=== PATIENT | female | born 1950 | race African-American/Black ===

== ENCOUNTER 2016-09-27 22:57 | Inpatient (IN) ==
[2016-09-28] MEDS ORDERED: ALUM/MAG/SIMETH/LIDO VISC 1:1 30 ML BOTTLE PO STA (00:15)
[2016-09-28] MEDS ORDERED: ONDANSETRON 4 MG/2 ML VIAL IV STA (00:15)
[2016-09-28] MEDS ORDERED: PANTOPRAZOLE 40 MG VIAL IV STA (00:15)
[2016-09-28] MEDS ORDERED: SODIUM CHLORIDE 0.9% 500 ML IV STA (00:15)
[2016-09-28 00:38] LABS: Basophils % 0.3 % (0.0-0.8); Eosinophils # 0.1 10*3/uL (0.0-0.87); Eosinophils % 1.4 % (0.00-10.9); Hematocrit 45.6 VOL% (35.7-47.0); Hemoglobin 15.9 GM/DL (12.0-16.0); Immature Granulocytes % 0.3 %; Immature Granulocytes Absolute 0.01 #; Lymphocytes # 0.5 10*3/uL (1.4-4.0); Lymphocytes % 12.4 % (21.3-54.2); Mean Corpuscular HGB Conc 34.9 GM/DL (32-36); Mean Corpuscular Hemoglobin 30 PG (27-34); Mean Corpuscular Volume 85.4 FL (87-102); Mean Platelet Volume 11.3 FL (9.6-12.0); Monocytes # 0.3 10*3/uL (0.11-0.8); Monocytes % 7.7 % (1.7-12.7); Neutrophils # 2.8 10*3/uL (1.4-7.4); Neutrophils % 77.9 % (38.7-73.9); Platelet Count 179 T/CUMM (130-400); Red Blood Count 5.34 MC/CUMM (3.8-5.5); Red Cell Distribution Width 13.3 % (9.3-17.3); White Blood Count 3.6 T/CUMM (4-12)
[2016-09-28 00:45] LABS: Apearance,Urine CLEAR (Clear); Bilirubin,Urine Negative (Negative); Blood, Urine Negative (Negative); Glucose,Urine (UA) Negative (Negative); Ketones,Urine Negative (Negative); Mucus,Urine Occasional /LPF (Occasional); Nitrite,Urine Negative (Negative); Protein,Urine Negative; RBC,Urine <1 /HPF (0-4); Squamous Epithelial Cell,Urine Occasional /HPF (0-10); Urine Color Yellow (Yellow); Urine Specific Gravity 1.008 (1.001-1.035); WBC,Urine 1 /HPF (0-6)
[2016-09-28] MEDS ORDERED: ONDANSETRON 4 MG/2 ML VIAL ONE ×3 (00:53→12:22)
[2016-09-28] MEDS ORDERED: PANTOPRAZOLE 40 MG VIAL IV ONE (00:53)
[2016-09-28] MEDS ORDERED: ALUM/MAG/SIMETH/LIDO VISC 1:1 30 ML BOTTLE PO ONE (00:54)
--- NOTE | 2016-09-28 00:57 | Emergency Department Note ---
Del Hoyos Emily, am scribing for, and in the presence of, Sonu العلي MD 00: 23. Zohra Hoyos Charles R, MD, personally performed the services described in this documentation, ascribed by Sandra Mathis in my presence, and it is both accurate and complete . Arrival - Arrival Chief Complaint: Abdominal / Flank Pain Stated Complaint: stomach pain cant use bathroom bloated ED Nursing Triage Note: Patient to triage with c/o ABD pain, and ABD bloating. ABD firm and distended in triage. Last BM was last night and was loose. Patient states she has not passed much gas today. Last meal this evening. Patient reports she has been on the road all week traveling. Mode of Arrival: Wheelchair Limitations: No Limitations Source: Patient Time Seen by Provider: 09/27/16 23:56 - History of Present Illness HPI Narrative: Pt is a 66 y/o female who came to ED while traveling this week from [place], [place], with c/o constipation and abdomen bloated and in pain that started 2 days ago. Pt notes passing some flatulence today and small BM yesterday but was loose. Pt reports having Sjogren's syndrome but denies ever having surgery for bowel obstructions in the past. Pt notes she's had abdomen pain and bloating for 2 years now, that comes in waves. Pt denies blood thinners. PMHx of hysterectomy. Onset (ago): day(s) Consistency: constant Severity: moderate Severity scale (1-10): 5 Quality: aching, fullness Date of Last Menstrual Period: hyst Allergies/Adverse Reactions: Allergies Allergy/AdvReac Type Severity Reaction Status Date / Time codeine Allergy ANAPHYLAXIS Verified 09/27/16 23:28 sertraline [From Zoloft] Allergy ANAPHYLAXIS Verified 09/27/16 23:28 simvastatin [From Zocor] Allergy ANAPHYLAXIS Verified 09/27/16 23:28 Nmlwxud-Wdd-Iue Reductase Allergy ANAPHYLAXIS Verified 09/27/16 23:28 Inhibitor celecoxib [From Celebrex] AdvReac Gastrointestinal Verified 09/27/16 23:28 Upset Review of System - Review of System 12 point system: reviewed and no additional remarkable complaints except as stated - Review of System Constitutional: Absent: fever Respiratory: Absent: respiratory distress Cardiovascular: Absent: chest pain Gastrointestinal: Present: abdominal pain, constipation. Absent: nausea, vomiting, diarrhea, melena Genitourinary female: Absent: dysuria, hematuria Musculoskeletal: Absent: arm pain, back pain Skin: Absent: rash Neurological: Absent: headache, numbness, confusion, abnormal gait Psychiatric: Absent: anxiety Medical,Surgical,& Family Hx - Medical History Cardio: History of: Hypertension Rheumatology: History of;: Rheumatoid Arthritis, Systemic Lupus Erythematosus Respiratory: History of: Bronchitis Musculoskeletal: History of: Musculoskeletal Problems (ganglion cyst to right wrist removed) Other: History of: Miscellaneous Medical Problems (auto immune disorder) - Surgical History HEENT Surgeries: Surgical HX of: Tonsilectomy & Adenoidectomy - Family History Family History: noncontributory - Social History Smoking Status: Never smoker Frequency of Alcohol Use: None Type of Drug Use: None Marital Status: Single Functional capacity: independent ambulation Exam Vital Signs: Vital Signs Temperature 98.7 F 09/27/16 23:17 Pulse Rate 101 H 09/27/16 23:17 Respiratory Rate 20 09/27/16 23:17 Blood Pressure 164/81 09/27/16 23:17 O2 Sat by Pulse Oximetry 100 09/27/16 23:17 - General General appearance: alert, in distress (mildly) - Head Head exam: Present: atraumatic, normocephalic - Eye Eye exam: Present: PERRL, EOMI - ENT ENT exam: Present: mucous membranes moist. Absent: mucous membranes dry - Neck Neck exam: Present: full ROM. Absent: tenderness - Chest Chest inspection: Present: symmetric chest wall rise. Absent: tenderness - Respiratory Respiratory exam: Present: normal lung sounds bilaterally. Absent: respiratory distress - Cardiovascular Cardiovascular exam: Present: tachycardia, normal heart sounds - Abdominal Exam Abdominal exam: Present: soft, distention (protuberant), tenderness (diffusely) , diminished bowel sounds (high tinkly bowel sounds). Absent: guarding, rebound - Extremities Exam Extremities exam: Present: full ROM. Absent: tenderness, pedal edema - Neurological Exam Neurological exam: Present: alert, oriented X3, CN II-XII intact. Absent: motor sensory deficit - Psychiatric Psychiatric exam: Present: normal affect, normal mood - Skin Skin exam: Present: warm, dry Course Course Narrative: Patient has possible small bowel obstruction with ischemic enteritis. NG tube in place decompress the bowel Dr. Winters will come see patient emergency room for possible surgery - Consultations Consultation #1: Dr. Winters will see patient in the emergency room evaluation for possible surgery Time: 01:22 Results - Labs CBC & BMP: 09/28/16 00:00 09/28/16 00:00 Lab Results: I have reviewed the patients labs Labs: Laboratory Tests 09/28/16 09/28/16 00:00 00:00 WBC 3.6 L MCV 85.4 L Neut % (Auto) 77.9 H Lymph % (Auto) 12.4 L Lymph # (Auto) 0.5 L Urine Color Yellow Urine Appearance Clear Urine pH 6.0 Ur Specific Freeborn 1.008 Urine Blood Negative Urine Urobilinogen 2.0 H Urine Leukocytes Negative Urine RBC <1 Urine WBC 1 Ur Squamous Epith Cells Occasional Urine Mucus Occasional Laboratory Tests 09/28/16 00:00 Potassium 3.1 L Creatinine 0.50 L Glucose 122 H Calcium 8.2 L Total Bilirubin 1.10 H Albumin 3.1 L Globulin 3.8 H Albumin/Globulin Ratio 0.8 L Critical Care Time Critical Care Time: Yes Total Critical Care Time: 60 Disposition Clinical Impression: Abdominal pain, Small bowel obstruction, Ischemic colitis, enteritis, or enterocolitis Case discussed with: patient, patient's family Disposition: Still a Patient Condition: Guarded Time of Disposition: :23
[2016-09-28 01:10] LABS: Alanine Aminotransferase 36 U/L (13-56); Albumin 3.1 G/DL (3.4-5.0); Alkaline Phosphatase 84 U/L (45-117); Amylase 32 U/L (25-115); Aspartate Amino Transferase 30 U/L (0-37); Blood Urea Nitrogen 7 MG/DL (7-18); Calcium 8.2 MG/DL (8.5-10.1); Glucose 122 MG/DL (74-106); Magnesium 2.2 MG/DL (1.8-2.4); Osmolality,Calculated 273.7 MOS/KG (273-304); Potassium 3.1 MMOL/L (3.5-5.1); Sodium 138 MMOL/L (136-145); Total Protein 6.9 G/DL (6.4-8.3); Troponin I Only < 0.015 NG/ML (0.00-0.045)
[2016-09-28] MEDS ORDERED: PIPERACILLIN/TAZOBACTAM 3,375 MG in SODIUM CHLORIDE 0.9% 100 ML IV STA (01:23)
--- NOTE | 2016-09-28 02:07 | General Surg History&Physical ---
Assessment and Plan (1) Ischemic colitis, enteritis, or enterocolitis Status: Inactive Current Visit: Yes (2) Small bowel obstruction Status: Acute Assessment and plan: This patient presents with a small bowel obstruction. Her CT scan report is reviewed. I have also reviewed the images on her CT scan. I do not see an area of pneumatosis but as mentioned by the [facility] radiologist. I also do not see that there is definitive evidence of a closed loop obstruction. The patient is uncomfortable but does not have peritonitis and is not any longer tachycardic. Her labs are relatively stable. I do not see any indications right now for emergent surgical intervention. We will place an NG tube and resuscitate the patient and see how she does tonight but if she worsens she will need to be taken to the operating room for laparotomy with lysis of adhesions. Current Visit: Yes History of Present Illness Chief complaint: Abdominal pain with nausea and vomiting History of present illness: Ms. Guerra is a 66 year old female who has a history of crest syndrome presents to the hospital with 1 day history of progressively worsening abdominal pain with distention and watery diarrhea. She denies any blood in her stool. She has had 3 bowel obstructions in the past but not one recently. She lives in [place] this is driving back home from the [facility] vacation driving trip. She has had a hysterectomy and umbilical hernia repair she thinks was without mass in the 80s. She was evaluated in the ER with a CBC, chemistry, urinalysis, abdominal x-ray, EKG, and CT of abdomen and pelvis without contrast. Her white blood cell count is essentially normal at 3600. Her chemistry is normal and her lactic acid is normal. Troponins were normal. EKG is sinus rhythm. Abdominal films reviewed. [facility] radiology reports pneumatosis on a single slice on CT scan and raises the possibility of ischemic enteritis and also talks about the possibility of a closed loop obstruction. I reviewed the images personally and do not see any evidence of pneumatosis or closed loop obstruction. There is dilation of the small bowel with distal decompression. Allergies Allergy/AdvReac Type Severity Reaction Status Date / Time codeine Allergy ANAPHYLAXIS Verified 09/27/16 23:28 sertraline [From Zoloft] Allergy ANAPHYLAXIS Verified 09/27/16 23:28 simvastatin [From Zocor] Allergy ANAPHYLAXIS Verified 09/27/16 23:28 Wqavdrb-Wwz-Adr Reductase Allergy ANAPHYLAXIS Verified 09/27/16 23:28 Inhibitor celecoxib [From Celebrex] AdvReac Gastrointestinal Verified 09/27/16 23:28 Upset Medical,Surgical,& Family Hx - Medical History Cardio: History of: Hypertension Rheumatology: History of;: Rheumatoid Arthritis, Systemic Lupus Erythematosus Respiratory: History of: Bronchitis Musculoskeletal: History of: Musculoskeletal Problems (ganglion cyst to right wrist removed) Other: History of: Miscellaneous Medical Problems (auto immune disorder) - Surgical History HEENT Surgeries: Surgical HX of: Tonsilectomy & Adenoidectomy - Social History Smoking Status: Never smoker Frequency of Alcohol Use: None Type of Drug Use: None Exam - Constitutional Vitals: Period Temp Pulse Resp BP Sys/Malik Pulse Ox Last 24 Hr 98.7 F-98.7 F 101-101 18-20 164-164/81-81 100 General appearance: no acute distress, over weight - Head Head exam: Present: normal inspection, normocephalic - Eye Eye exam: Present: EOMI Pupils: Present: WESLEY - ENT ENT exam: Present: normal exam Mouth exam: Present: normal external inspection, normal voice - Neck Neck exam: Present: normal inspection, trachea midline - Respiratory Respiratory exam: Present: clear to auscultation bilaterally. Absent: accessory muscle use, chest wall tenderness - Cardiovascular Cardiovascular exam: Present: RRR. Absent: systolic murmur, tachycardia - GI/Abdominal GI/Abdominal exam: Present: hyperactive bowel sounds, tenderness (Patient is tender diffusely but no peritoneal signs. No rebound or guarding.), soft. Absent: guarding, rebound - Extremities Exam Extremities exam: Present: normal inspection, normal capillary refill - Back Exam Back exam: Present: normal inspection - Neurological Exam Neurological exam: Present: alert, oriented X3 Speech: Present: normal - Skin Skin exam: Present: normal color, warm - Constitutional Constitutional: Present: as per HPI - EENT Nose, mouth and throat: Present: as per HPI - Cardiovascular Cardiovascular: Present: as per HPI - Respiratory Respiratory: Present: as per HPI - Gastrointestinal Gastrointestinal: Present: as per HPI - Genitourinary Genitourinary: Present: as per HPI - Musculoskeletal Musculoskeletal: Present: as per HPI - Neurological Neurological: Present: as per HPI - Endocrine Endocrine: Present: as per HPI Hematologic/Lymphatic: Present: as per HPI Results - Labs CBC & BMP: 09/28/16 00:00 09/28/16 00:00 - Diagnostic Findings Procedure: CT Abdomen and Pelvis: image reviewed by me, report reviewed by me
[2016-09-28] MEDS ORDERED: PIPERACILLIN/TAZOBACTAM 3,375 MG VIAL IV ONE (02:44)
[2016-09-28] MEDS ORDERED: SODIUM CHLORIDE 0.9% 100 ML IV ONE ×2 (02:48)
--- NOTE | 2016-09-28 03:15 | Event Note ---
I have placed an NG tube in the patient and ensure that it is adequately positioned. The initial x-ray showed that it was too shallow and noted advance until he returned bilious looking fluid. The patient felt significant relief and actually had 2 bowel movements after I first saw her. She was actually pain -free at that point in time and still distended but felt significantly better. We discussed the option of operative intervention with the patient would like to wait for now since she feels so much better. She does have a CT scan is fairly significant but given her clinical exam and immediate improvement in the ER already she would like to hold off on operative intervention. I have offered operative intervention given the results of the CT scan but of also told the patient that I think it is reasonable to monitor her abdominal exam with NG tube and antibiotics and IV fluid resuscitation. If she worsens at all she will need to go to the operating room but I think it is reasonable at this point in time to watch her clinically and decompress her and treat her nonoperatively. 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 Her lactic acid is normal and we will plan to admit her to regular bed and continue her decompression overnight with repeat labs and x-ray in the morning.
[2016-09-28] MEDS ORDERED: ACETAMINOPHEN 325 MG TABLET PO PRN (04:33)
[2016-09-28] MEDS ORDERED: PIPERACILLIN/TAZOBACTAM 3,375 MG in SODIUM CHLORIDE 0.9% 100 ML IV SCH ×2 (04:33→11:00)
[2016-09-28] MEDS ORDERED: ONDANSETRON 4 MG/2 ML VIAL IV PRN ×2 (04:33→12:17)
[2016-09-28] MEDS: LACTATED RINGERS 1,000 ML IV SCH ×3 (05:41→22:47)
--- NOTE | 2016-09-28 06:41 | CT Report ---
CT abdomen pelvis wo con Indication: Abdominal pain/pelvic pain Comparison: None Technique: Multiple axial tomographic images of the abdomen and pelvis were obtained without the use of intravenous contrast. Findings: Mild dependent change of the lungs present. No worrisome focal hepatic abnormality. Gallbladder partially contracted. The pancreas is grossly unremarkable. The spleen is grossly unremarkable. The bilateral adrenal glands are grossly unremarkable. The bilateral kidneys are grossly unremarkable. The urinary bladder is incompletely distended. Status post hysterectomy. Small free fluid within the pelvis. Appendix not identified with certainty. Loops of dilated small bowel are demonstrated throughout the abdomen measuring up to 5.4 cm consistent with small bowel obstruction. Transition point question within the mid mesentery where there is significant mesenteric fat stranding suggestive of enteritis. Question pneumatosis within small bowel of the inferior abdomen/pelvis which can be seen with ischemic bowel. Closed-loop obstruction not excluded. Mild atherosclerotic calcifications demonstrated. Visualized osseous and surrounding soft tissue structures demonstrate no acute abnormality. Significant degenerative change of the bilateral SI joints. Bilateral pars defects at L5 with grade 2 anterolisthesis of L5 upon S1 with severe loss of disc space height at this level. IMPRESSION: Loops of dilated small bowel are demonstrated throughout the abdomen measuring up to 5.4 cm consistent with small bowel obstruction. Transition point question within the mid mesentery where there is significant mesenteric fat stranding suggestive of enteritis. Question pneumatosis within small bowel of the inferior abdomen/pelvis which can be seen with ischemic bowel. Closed-loop obstruction not excluded. There is small free fluid within the pelvis. Status post hysterectomy and other detailed findings as above. Preliminary report was issued by [facility]. Findings discussed with Dr. Sonu العلي at 1:10 AM on September 28, 2016 by Bonita Morocho. The CT exam was performed using one or more of the following dose reduction techniques: Automated exposure control, adjustment of the mA and/or kV according to patient size, or use of iterative reconstruction technique. PROCEDURE INTERPRETED AT [facility] [place] DEPARTMENT OF RADIOLOGY Final Report Signed by: Dr Abel Minaya
--- NOTE | 2016-09-28 06:58 | XRay Report ---
XR abdomen 1V Indication: NG tube placement Comparison: Abdominal x-ray dated August 29, 2016 at 2:26 AM Technique: Frontal views of the abdomen specifically for enteric tube placement. Findings: Nonweighted enteric tube tip projects over the proximal stomach. Side port projects over the distal thoracic esophagus. Consider advancing by at least 8 cm. Findings consistent with small bowel obstruction again demonstrated. IMPRESSION: As above. PROCEDURE INTERPRETED AT [facility] DEPARTMENT OF RADIOLOGY Final Report Signed by: Dr Abel Minaya
--- NOTE | 2016-09-28 07:04 | XRay Report ---
XR abdomen complete w decub Indication: Generalized abdominal pain Comparison: None Technique: Frontal views of the abdomen in the supine and upright position. Findings: Dilated small bowel throughout abdomen with air-fluid levels consistent with small bowel obstruction. No free intraperitoneal air. Diffuse osteopenia. Presumed pelvic phleboliths. Lung bases clear. IMPRESSION: As above. PROCEDURE INTERPRETED AT [facility] DEPARTMENT OF RADIOLOGY Final Report Signed by: Dr Abel Minaya
--- NOTE | 2016-09-28 07:16 | EKG Report ---
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
--- NOTE | 2016-09-28 07:55 | General Surgery Progress Note ---
Assessment and Plan (1) Ischemic colitis, enteritis, or enterocolitis Status: Inactive Current Visit: Yes (2) Small bowel obstruction Status: Acute Assessment and plan: The patient still appears stable and does not appear septic. However, her pain is slightly worsened and given the appearance of her CT scan I think the best thing to do at this point be to take her to the operating room for laparotomy and lysis of adhesions. I discussed the possibility of bowel resection and ostomy with patient. Y initially got called to see the patient last night with a diagnosis of pneumatosis and small bowel obstruction I was planning on operating on her. However, after coming into the ER and seeing how she looked, I felt like treating the patient rather than the CT scan was the appropriate thing to do and the patient was not tachycardic with essentially normal labs her abdominal exam showed no peritoneal signs and she actually had 2 bowel movements while I was there and I observed her for about 2 hours with an NG tube placed personally and she improved significantly symptomatically. For these reasons I decided to initially watch her with close observation and any changes such as was happening this morning would need to trigger an exploration to prevent necrosis of any bowel that may be compromised by the obstruction I discussed all this again with the patient and she is agreeable to surgery. We will go as soon as a room is available.. Current Visit: Yes Subjective Patient reports: Present: no new complaints, still having pain, no flatus, no bowel movement, nausea, afebrile. Absent: bowel movement, vomiting Narrative: Patient really does not feel much better overnight. She looks a little bit more uncomfortable to me today. I stayed with her last night for about 2 hours to monitor her initial response to treatment and she actually became pain-free and had 2 bowel movements and felt much better so we held off on surgery last night. But does not appear to be the case this morning. There does not appear to be any any tachycardia or fevers in the chart. Labs are pending Exam - Constitutional Vitals: Period Temp Pulse Resp BP Sys/Malik Pulse Ox Last 24 Hr 97.4 F-98.7 F 79-101 18-20 139-164/64-81 95-100 General appearance: normal weight, no acute distress - Head Head exam: Present: normal inspection, normocephalic - Eye Eye exam: Present: EOMI - ENT ENT exam: Present: normal exam Mouth exam: Present: normal external inspection, normal voice - Neck Neck exam: Present: normal inspection, trachea midline - Respiratory Respiratory exam: Present: clear to auscultation bilaterally. Absent: accessory muscle use, chest wall tenderness - Cardiovascular Cardiovascular exam: Present: RRR. Absent: systolic murmur, tachycardia - GI/Abdominal GI/Abdominal exam: Present: hypoactive bowel sounds, tenderness (There is minimal diffuse tenderness but it is a little bit worse than yesterday in my opinion. No peritoneal signs.), soft. Absent: distended, rebound - Extremities Exam Extremities exam: Present: normal inspection, normal capillary refill - Back Exam Back exam: Present: normal inspection - Neurological Exam Neurological exam: Present: alert, oriented X3 Speech: Present: normal - Skin Skin exam: Present: normal color, warm Results - Labs CBC & BMP: 09/28/16 00:00 09/28/16 00:00
[2016-09-28] MEDS: PANTOPRAZOLE 40 MG VIAL IV SCH (08:20)
[2016-09-28 08:29] LABS: Eosinophils % 0.8 % (0.00-10.9); Hematocrit 31.9 VOL% (35.7-47.0); Immature Granulocytes % 0.4 %; Immature Granulocytes Absolute 0.02 #; Lymphocytes # 0.9 10*3/uL (1.4-4.0); Lymphocytes % 18.1 % (21.3-54.2); Mean Corpuscular HGB Conc 33.9 GM/DL (32-36); Mean Corpuscular Hemoglobin 30 PG (27-34); Mean Corpuscular Volume 87.2 FL (87-102); Mean Platelet Volume 11.6 FL (9.6-12.0); Monocytes # 0.4 10*3/uL (0.11-0.8); Monocytes % 8.5 % (1.7-12.7); Neutrophils # 3.7 10*3/uL (1.4-7.4); Neutrophils % 72.2 % (38.7-73.9); Red Cell Distribution Width 13.4 % (9.3-17.3)
[2016-09-28 08:30] LABS: Hemoglobin 10.8 GM/DL (12.0-16.0); Platelet Count 258 T/CUMM (130-400); Red Blood Count 3.66 MC/CUMM (3.8-5.5); White Blood Count 5.1 T/CUMM (4-12)
[2016-09-28 08:33] LABS: Calcium 7.8 MG/DL (8.5-10.1); Magnesium 2.2 MG/DL (1.8-2.4); Osmolality,Calculated 278.3 MOS/KG (273-304); Potassium 3.2 MMOL/L (3.5-5.1)
[2016-09-28] MEDS ORDERED: PANTOPRAZOLE 40 MG TABLET PO SCH (09:00)
[2016-09-28] MEDS ORDERED: DIAZEPAM 5 MG TABLET PO ONE (09:09)
[2016-09-28] MEDS ORDERED: ALBUTEROL 2.5 MG/3 ML NEB RESP TX ONE (09:09)
[2016-09-28] MEDS ORDERED: PROPOFOL 200 MG/20 ML VIAL IV ONE (09:50)
[2016-09-28] MEDS ORDERED: NEOSTIGMINE 10 MG/10 ML VIAL ONE (09:50)
[2016-09-28] MEDS ORDERED: LIDOCAINE 1% 5 ML VIAL ONE (09:50)
[2016-09-28] MEDS ORDERED: GLYCOPYRROLATE 0.4 MG/2 ML VIAL ONE (09:50)
[2016-09-28] MEDS ORDERED: ROCURONIUM 100 MG/10 ML VIAL IV ONE (09:50)
[2016-09-28] MEDS ORDERED: PHENYLEPHRINE 1 MG/10 ML SYRINGE IV ONE (09:50)
[2016-09-28] MEDS ORDERED: SUCCINYLCHOLINE 200 MG/10 ML VIAL ONE (09:50)
[2016-09-28] MEDS ORDERED: MIDAZOLAM 2 MG/2 ML VIAL ONE (11:40)
[2016-09-28] MEDS ORDERED: SEVOFLURANE 1 UNIT/15 MINUTE INH ONE (11:40)
[2016-09-28] MEDS ORDERED: fentaNYL 100 MCG/2 ML VIAL ONE (11:41)
[2016-09-28] MEDS ORDERED: LACTATED RINGERS 1,000 ML IV ONE (11:41)
[2016-09-28 11:43] LABS: Apearance,Urine CLEAR (Clear); Bilirubin,Urine Negative (Negative); Blood, Urine Negative (Negative); Glucose,Urine (UA) Negative (Negative); Ketones,Urine 5 mg/dL (Negative); Nitrite,Urine Negative (Negative); Protein,Urine Negative; RBC,Urine <1 /HPF (0-4); Urine Color Straw (Yellow); Urine Specific Gravity 1.002 (1.001-1.035); Urine Urobilinogen < 2.0 EU/DL (0.2-1.0); WBC,Urine <1 /HPF (0-6)
--- NOTE | 2016-09-28 12:00 | Operative Note ---
Date of procedure: 09/28/16 Pre-op diagnosis: Small bowel obstruction Post-op diagnosis: same Procedure: Preoperative diagnosis Small bowel obstruction Postoperative diagnosis Same Procedures performed 1. Exploratory laparotomy with lysis of adhesions 2. Small bowel resection with primary anastomosis Findings There was an adhesive band between the omentum and the sigmoid colon that could cause an internal hernia and a twisting of the mesentery and small bowel in the distal ileum. This area was freed up by fraying of this adhesion and the other adhesions in the abdominal cavity were also taken down. A complete enterolysis was obtained. There was a scarred area where the bowel was twisted that look like it was going to remain obstructed and would not open up and this area was also beat up from the internal hernia and for these reasons I elected to resect this portion of the distal ileum and a primary anastomosis was performed. The bowel was decompressed through the enterotomy created for the anastomosis and resection. The NG tube position was confirmed and we upsized to an 18 Syrian NG tube during the procedure. Complications None apparent Specimen Distal ileum sent to pathology Blood loss Minimal Anesthesia GETA Indications Small bowel obstruction failed medical management Description of procedure The patient was taken to the operating room and transferred to the operating table in the supine position. Pressure points were padded and SCDs were placed to bilateral lower extremities. General endotracheal anesthesia was administered and a Lopez catheter was placed with clear urine output. The abdomen is prepped with chlorhexidine and draped sterilely. Preoperative antibiotics were administered and a timeout was performed. A midline celiotomy incision was made with a 10 blade scalpel. Bovie electrocautery was used to enter the abdominal cavity and open the fascia. A full exploration was performed. There was dilated proximal small bowel and this was evaluated starting at the ligament of Treitz. The bowel was then run distally where it spiraled around an internal hernia defect caused by an omental adhesion to the sigmoid colon and twisted on the mesentery. This adhesion was lysed and the remaining intra-abdominal adhesions to the midline mostly between the omentum were also taken down and complete abdominal enterolysis was performed. The bowel was then returned to its normal anatomic position and what we saw at this point was that there was an area of the distal ileum that have been twisted around this adhesion that was very scarred and firm and looked like it was going to cause a fibrotic reaction resulting in persistent bowel obstruction. The bowel is also quite beat up around this with hemorrhagic findings and ecchymosis and I felt like the safest thing to do was to remove this segment of bowel. Approximately 6 cm of distal ileum was resected after mesenteric windows were made with electrocautery. The intervening mesentery was divided with a LigaSure and the small bowel was divided between bowel clamps and removed. A stapled [id number]-bb-iabo anastomosis was then performed in antiperistaltic fashion using a MAYNOR 80 mm stapler and a TA 90 mm stapler. The mesenteric defect was closed with a running 3-0 Vicryl suture. The bowel was returned to its anatomic position and the mesentery was inspected and was not twisted. The omentum was then draped over the abdominal contents below the fascia and the abdomen was irrigated. The irrigation was removed with suction. The midline fascia was closed with running #1 non-looped PDS sutures and the subcutaneous tissues were also irrigated. The NG tube was checked prior to closing the abdomen and was in the appropriate position in the stomach. We upsized to an 18 Syrian NG tube. The skin incision was then closed with skin clips and a sterile dressing was applied. The patient's Lopez was left in place and she was awakened from anesthesia and transferred to recovery. Postoperative plan Monitor return of bowel function and continue IV fluids and pain medicine Anesthesia: YOSELYNA Surgeon / Physician: Octavio Winters Estimated blood loss: minimal Specimens: other (distal ileum) Condition: stable Disposition: PACU Results - Labs CBC & BMP: 09/28/16 08:18 09/28/16 07:40 Discharge Plan - Discharge Medications No Action Omeprazole 40 mg PO DAILY Losartan [Cozaar] 50 mg PO DAILY Amlodipine Besylate 2.5 mg PO DAILY raNITIdine HCl [Ranitidine HCl] 300 mg PO DAILY - Follow Up or Referral - Forms/Instructions
[2016-09-28] MEDS ORDERED: HYDROmorphone 2 MG/1 ML VIAL IV PRN (12:17)
[2016-09-28] MEDS ORDERED: HYDROmorphone 2 MG/1 ML VIAL ONE (12:22)
--- NOTE | 2016-09-28 12:24 | Anesthesia Post-Op ---
Anesthesia Post OP - Post Ansesthetic Evaluation Patient seen in post op: Yes Resp: within normal limits CV: within normal limits Mental: within normal limits Temp: within normal limits Mvmo-Nw-Kreyreucd: within normal limits Nausea and Vomiting: within normal limits Pain: within normal limits
[2016-09-28] MEDS ORDERED: NALOXONE 0.4 MG/ML VIAL IV PRN (12:45)
[2016-09-28] MEDS: HYDROmorphone PCA 30 MG/30 ML SYRINGE IV SCH (13:05)
[2016-09-28] MEDS: KETOROLAC 30 MG/1 ML VIAL IV SCH ×2 (13:05→18:40)
--- NOTE | 2016-09-28 18:42 | Event Note ---
General Surgery Progress Note Chief complaint This patient is a 66-year-old woman admitted with a small bowel obstruction failed to improve with nonoperative management taken to the operating room for laparotomy with lysis of adhesions and small bowel resection on 09/28/2016 Interval history No events since OR. Patient is resting comfortably in bed. She is in some pain but has not posterior ROADS SUPERINTENDENT since surgery. Her urine output is adequate with Lopez but is slightly concentrated. Vital signs are stable. Physical exam Afebrile with normal vital signs Chest is clear Heart is regular not tachycardic Abdomen is soft and appropriately tender, hypoactive bowel sounds NG tube has minimal output Lopez catheter with concentrated urine Lower extremities with no edema Labs None new Imaging None new Assessment and plan Continue NG tube and Lopez tonight Await return of bowel function Continue ROADS SUPERINTENDENT and Toradol Start ambulating and increase activity tomorrow Repeat labs in a.m. Continue IV fluids for now, patient does not appear to need an IV fluid bolus currently
[2016-09-28] MEDS: ENOXAPARIN 40 MG/0.4 ML SYRINGE SUBCUT SCH (20:29)
[2016-09-29] MEDS: KETOROLAC 30 MG/1 ML VIAL IV SCH ×4 (02:22→19:45)
[2016-09-29 05:41] LABS: Basophils % 0.2 % (0.0-0.8); Immature Granulocytes % 0.6 %; Immature Granulocytes Absolute 0.04 #; Lymphocytes # 0.5 10*3/uL (1.4-4.0); Lymphocytes % 7.7 % (21.3-54.2); Mean Corpuscular HGB Conc 33.3 GM/DL (32-36); Mean Corpuscular Hemoglobin 29 PG (27-34); Mean Platelet Volume 11.8 FL (9.6-12.0); Monocytes # 0.4 10*3/uL (0.11-0.8); Monocytes % 6.8 % (1.7-12.7); Neutrophils # 5.5 10*3/uL (1.4-7.4); Neutrophils % 84.7 % (38.7-73.9); Platelet Count 251 T/CUMM (130-400); Red Blood Count 3.41 MC/CUMM (3.8-5.5); Red Cell Distribution Width 13.4 % (9.3-17.3); White Blood Count 6.5 T/CUMM (4-12)
[2016-09-29 06:09] LABS: Band Neutrophils 3 % (0-10); Lymphocytes 6 % (20-55); Platelet Estimate Normal; Segmented Neutrophils 85 % (50-85); Total Cells Counted 100
[2016-09-29 06:13] LABS: Calcium 7.2 MG/DL (8.5-10.1)
[2016-09-29] MEDS: LACTATED RINGERS 1,000 ML IV SCH ×5 (06:51→22:57)
[2016-09-29] MEDS: PANTOPRAZOLE 40 MG VIAL IV SCH (08:10)
[2016-09-29] MEDS: amLODIPine 2.5 MG TABLET PO SCH (08:15)
--- NOTE | 2016-09-29 10:36 | Event Note ---
Status post ex lap with lysis of adhesions. Afebrile vital signs stable. Patient is feeling better. Says she has a little bit of pressure in the rectum and think she is about to have a bowel movement. NG tube is had 400 cc in the last 24 hours. Her potassium is 3.0. The remaining labs are okay. Her abdomen is soft appropriately tender nondistended and the incision looks good. Will begin a potassium protocol. Continue NG tube for now. There is no bowel sounds and I have encouraged her to ambulate. Continue IV fluids.
[2016-09-29] MEDS: POTASSIUM CHLORIDE RIDER 10 MEQ in PREMIX 1 EACH IV PRN ×4 (11:37→20:01)
[2016-09-29] MEDS: HYDROmorphone PCA 30 MG/30 ML SYRINGE IV SCH (13:18)
[2016-09-29] MEDS: ALBUTEROL 0.63 MG/3 ML NEB RESP TX PRN (15:08)
[2016-09-29] MEDS: ENOXAPARIN 40 MG/0.4 ML SYRINGE SUBCUT SCH (20:16)
[2016-09-30] MEDS: KETOROLAC 30 MG/1 ML VIAL IV SCH ×4 (00:04→17:46)
[2016-09-30] MEDS: POTASSIUM CHLORIDE RIDER 10 MEQ in PREMIX 1 EACH IV PRN ×4 (00:17→13:09)
[2016-09-30] MEDS: LACTATED RINGERS 1,000 ML IV SCH ×5 (03:42→23:17)
[2016-09-30] MEDS ORDERED: POTASSIUM CHLORIDE RIDER 10 MEQ in PREMIX 1 EACH IV PRN (06:07)
[2016-09-30] MEDS: PANTOPRAZOLE 40 MG VIAL IV SCH (09:00)
[2016-09-30] MEDS: amLODIPine 2.5 MG TABLET PO SCH (09:00)
[2016-09-30] MEDS: ALBUTEROL 0.63 MG/3 ML NEB RESP TX PRN (11:15)
--- NOTE | 2016-09-30 11:33 | Event Note ---
Afebrile vital signs stable. Status post ex lap small for small bowel obstruction. Patient feels fine. Pain appears well-controlled. She reports no flatus or bowel movement. NG tube output decreased significantly. Her abdomen is soft nontender with no significant distention. No bowel sounds are appreciated. Plan: Continue NG tube and wait bowel function return.
[2016-09-30] MEDS: HYDROmorphone PCA 30 MG/30 ML SYRINGE IV SCH (14:32)
[2016-09-30] MEDS: ENOXAPARIN 40 MG/0.4 ML SYRINGE SUBCUT SCH (21:02)
[2016-10-01] MEDS: KETOROLAC 30 MG/1 ML VIAL IV SCH ×4 (00:10→18:40)
[2016-10-01] MEDS: LACTATED RINGERS 1,000 ML IV SCH ×2 (08:04→18:58)
[2016-10-01] MEDS: amLODIPine 2.5 MG TABLET PO SCH (09:15)
[2016-10-01] MEDS: PANTOPRAZOLE 40 MG VIAL IV SCH (09:24)
[2016-10-01] MEDS: ALBUTEROL 0.63 MG/3 ML NEB RESP TX PRN ×2 (09:40→20:00)
--- NOTE | 2016-10-01 10:13 | Event Note ---
General Surgery Progress Note Chief complaint This patient is a 66-year-old woman admitted with a small bowel obstruction failed to improve with nonoperative management taken to the operating room for laparotomy with lysis of adhesions and small bowel resection on 09/28/2016 Interval history No events over the weekend. Patient had a bowel movement this morning. She feels hungry. She has minimal NG tube output. Pain is well controlled. She is up walking around at times. Physical exam Afebrile, normal vital signs No distress, resting in bed Chest is clear Heart is regular Abdomen is soft and appropriately tender. Incision is clean, dry, and intact. Hypoactive bowel sounds are present Extremities no edema Labs Potassium 3.4 Imaging None new Assessment and plan Discontinue NG tube Clear liquid diet, advance as tolerated Continue ambulate in the hallway Continue DVT chemoprophylaxis Continue current pain regimen Discharge home the next couple days if doing well
[2016-10-01] MEDS: LOSARTAN 50 MG TABLET PO SCH (13:03)
[2016-10-01] MEDS: FAMOTIDINE 20 MG TABLET PO SCH (13:04)
[2016-10-01] MEDS: POTASSIUM CHLORIDE RIDER 10 MEQ in PREMIX 1 EACH IV PRN (18:56)
[2016-10-01] MEDS: ENOXAPARIN 40 MG/0.4 ML SYRINGE SUBCUT SCH (21:05)
[2016-10-02] MEDS: LACTATED RINGERS 1,000 ML IV SCH ×2 (00:08→08:24)
[2016-10-02] MEDS: KETOROLAC 30 MG/1 ML VIAL IV SCH ×4 (01:07→18:59)
--- NOTE | 2016-10-02 07:19 | Event Note ---
General Surgery Progress Note Chief complaint This patient is a 66-year-old woman admitted with a small bowel obstruction failed to improve with nonoperative management taken to the operating room for laparotomy with lysis of adhesions and small bowel resection on 09/28/2016 Interval history Patient is having a little bit of cramping after drinking cold water but she is tolerating her diet without nausea or vomiting. She had a large bowel movement this morning and several smaller ones over the night and is passing gas. She is not having any abdominal pain. Physical exam Afebrile, normal vital signs No distress, resting in bed Chest is clear Heart is regular Abdomen is soft and appropriately tender. Nondistended incision is clean, dry, and intact. Hypoactive bowel sounds are present Extremities no edema Labs None Imaging None new Assessment and plan Continue diet as tolerated Plan for discharge tomorrow if doing well
[2016-10-02] MEDS ORDERED: hydroCHLOROthiazide 12.5 MG CAPSULE PO SCH (11:30)
[2016-10-02] MEDS: PANTOPRAZOLE 40 MG VIAL IV SCH (12:26)
[2016-10-02] MEDS: FAMOTIDINE 20 MG TABLET PO SCH (13:27)
[2016-10-02] MEDS: LOSARTAN 50 MG TABLET PO SCH (13:28)
[2016-10-02] MEDS: amLODIPine 2.5 MG TABLET PO SCH (13:28)
[2016-10-02] MEDS: hydroCHLOROthiazide 12.5 MG CAPSULE PO SCH (13:29)
[2016-10-02] MEDS: ALBUTEROL 0.63 MG/3 ML NEB RESP TX PRN (13:52)
--- NOTE | 2016-10-02 14:22 | Pathology Report from [facility] ---
[facility] ACCESSION # : [id number] PATIENT NAME : Triston Figueroa ORDERING DR : Octavio Winters MD CLINICAL HX: Small bowel obstruction POST-OP DX: Same SPECIMEN INFO: Ileum GROSS DESCRIPTION: Received in formalin labeled TRISTON FIGUEROA is a segment of small bowel measuring 13.5 x 3.0 cm. The serosa is red carr with an attached fragment of fatty, fibrous tissue noted measuring 8.5 x 1.4 cm which grossly appears to cause constriction of the lumen. The mucosal surface is somewhat edematous with no mucosal lesions or perforations seen. Received separately in the specimen container is a fragment of mucosal tissue measuring 9.0 x 1.0 cm. Sections submitted A&B-Surgical margins, C&D-Bowel and area of constriction. DIAGNOSIS FOR TRISTON FIGUEROA: ILEUM, SEGMENTAL RESECTION: Serosal fibrous adhesions with edema, congestion. No tumor seen. Viable tissue present in proximal and distal specimen margins. COLLECTED DATE: 09/28/2016 [facility] REPORT DATE: 10/01/2016 ELECTRONICALLY SIGNED BY: Florencia Bourne M.D. 10/01/2016 - 9:30:11 [facility]
[2016-10-02] MEDS: ENOXAPARIN 40 MG/0.4 ML SYRINGE SUBCUT SCH (20:49)
[2016-10-03] MEDS: KETOROLAC 30 MG/1 ML VIAL IV SCH ×2 (00:37→05:53)
--- NOTE | 2016-10-03 07:40 | Event Note ---
General Surgery Progress Note Chief complaint This patient is a 66-year-old woman admitted with a small bowel obstruction failed to improve with nonoperative management taken to the operating room for laparotomy with lysis of adhesions and small bowel resection on 09/28/2016 Interval history No events overnight. Patient is doing well. She is having bowel movements and passing gas. Tolerating p.o. No vomiting. Wants to go to the hotel today which we will set for a couple days prior to driving back [place]. Physical exam Afebrile, normal vital signs No distress, resting in bed Chest is clear Heart is regular Abdomen is soft and appropriately tender. Nondistended incision is clean, dry, and intact. Normal bowel sounds are present Extremities no edema Labs None Imaging None new Assessment and plan Discharge home to the hotel today Patient will stay in hotel for 2 days prior to driving home We will fax records to her primary care physician in [place] and make sure that that person is comfortable removing her anival a week from Saturday.
[2016-10-03] MEDS: hydroCHLOROthiazide 12.5 MG CAPSULE PO SCH (09:22)
[2016-10-03] MEDS: LOSARTAN 50 MG TABLET PO SCH (09:22)
[2016-10-03] MEDS: FAMOTIDINE 20 MG TABLET PO SCH (09:23)
[2016-10-03] MEDS: amLODIPine 2.5 MG TABLET PO SCH (09:23)
--- NOTE | 2016-10-03 10:46 | Discharge Summary ---
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 Winters on 09/28/2016 with worsening abdominal pain, distention, and watery diarrhea. CT scan read by [facility] radiologist reported pneumatosis and closed-loop obstruction. Dr. Winters read the reports and did not see an area of pneumatosis nor definitive evidence of closed loop obstruction. NG tube was placed and she was volume resuscitated. Patient was taken to the OR on 09/28/[address] Winters performed an exploratory laparotomy with lysis of adhesions and small bowel resection with primary anastomosis. She had an adhesive band between the omentum and the sigmoid colon that was the cause of an internal hernia the twist of the mesentery and the small bowel and the distal ileum. That area was scarred and would have remained obstructed so he elected to resect that portion. Postoperatively it took several days for her bowels to wake up but she is now tolerating a diet and having bowel movements. Her pain is well controlled and she is not taking much pain medicine at all. She is also ambulating in the room without difficulty. She will be discharged to a hotel room for 2 days prior to driving home to [place]. We will have her records faxed to her primary care physician who can remove her anival a week from Saturday. Complete discharge instructions were given to the patient and the family members in the room. Care coordination, chart review, and completed discharge paperwork took approximately 43 minutes. - Time spent with patient Time with patient DS: Greater than 30 minutes Diagnosis - Discharge Diagnosis (1) CREST syndrome Status: Chronic (2) History of small bowel obstruction Status: Chronic (3) Abdominal pain Status: Resolved (4) Small bowel obstruction Status: Resolved Discharge Plan - Discharge Data Disposition: Disch To Home/Self Care Condition at Discharge: Stable Discharge Diet: advance to your usual diet Activity: no lifting Hygiene: may shower Driving: other (No driving if taking pain medications) Contact your physician if you experience:: fever over 101, Nausea/Vomiting Wound / Dressing Care Instructions: Okay to shower daily with mild soap and water, pat dry, leave open to the air or cover as needed with Band-Aids - Discharge Medications New Ondansetron Odt Tab [Zofran Odt] 4 mg PO Q6H #30 tablet Meperidine Tab [Demerol Tab] 50 mg PO Q4H #30 tablet Acetaminophen Tab [Tylenol Tab] 650 mg PO Q6H PRN tablet PRN Reason: Pain Mild (1-3) And/Or Fever Continue Omeprazole 40 mg PO DAILY Losartan [Cozaar] 50 mg PO DAILY Amlodipine Besylate 2.5 mg PO DAILY raNITIdine HCl [Ranitidine HCl] 300 mg PO DAILY hydroCHLOROthiazide [Hydrochlorothiazide] 12.5 mg PO DAILY - Follow Up or Referral Follow Up: Ashwini Joel [Other] - 10/12/16 (staple removal) - Forms/Instructions Exam - Constitutional Vitals: Period Temp Pulse Resp BP Sys/Malik Pulse Ox Last 24 Hr 96.0 F-98.3 F 60-74 14-20 136-158/63-72 94-100 Exam: 66-year-old [place] Ch[place] female, no acute distress, alert and oriented Chest clear CV regular rate and rhythm Abdomen soft, appropriately tender, incisions look good Extremities no edema DS: Provider Date of admission: 09/28/16 03:09 Primary care physician: . No PCP Attending physician on admission: Octavio Winters MD Consults: 09/28/16 06:45 Consult to Dietitian [CONS] Routine Reason for Dietitian: Dietary Consult Discharging clinician: SAPNA Jo Expected date of discharge: 10/03/16
[2016-10-03 12:49] VITALS: BP 145/84
[2016-10-03] MEDS ORDERED: ALUMINUM/MAGNES/SIMETH MAX STR 30 ML UDCUP PO PRN (12:57)
== END 2016-10-03 15:39 | disposition home or self-care (01) | DRG 330 ==
LOC: N.ED 22:57 → N.EDINP 09-28 03:09 → N.4E 09-28 04:20
PROVIDERS: ADMIT Surgery; ATTEND Surgery